=== PATIENT | male | born 1980 | race American Indian/Alaskan Native ===

== ENCOUNTER 2021-07-01 12:43 | Emergency (ER) | payer OTHER ==
[2021-07-01 13:56] VITALS: BP 151/106
[2021-07-01] MEDS ORDERED: KETOROLAC 10 MG TAB PO ONE (14:20)
[2021-07-01] MEDS ORDERED: CYCLOBENZAPRINE 10 MG TAB PO ONE (14:21)
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
== END 2021-07-01 15:19 | disposition home or self-care (01) ==
LOC: ED 12:43
DX: M54.2 Cervicalgia (principal); M54.50 Low back pain, unspecified; V89.2XXA Person injured in unspecified motor-vehicle accident, traffic, initial encounter; Y93.89 Activity, other specified; Y92.89 Other specified places as the place of occurrence of the external cause; Y99.8 Other external cause status
CPT/HCPCS: 99282